=== PATIENT | male | born 1960 ===

== ENCOUNTER 2021-03-07 10:30 | Inpatient (IN) | payer OTHER ==
[~2021-03-07] VITALS: Ht 162.6 cm; Wt 78.5 kg
[2021-03-07] MEDS ORDERED: LASIX20 MG PO (13:49)
[2021-03-07] MEDS ORDERED: SIMVASTATIN80 MG PO (13:49)
[2021-03-07] MEDS ORDERED: CHILDREN'S ASPI81 MG PO (13:49)
[2021-03-07] MEDS ORDERED: NIFEDIPINE ER60 MG PO (13:49)
[2021-03-07] MEDS ORDERED: ACID REDUCER20 M1 PO (13:49)
[2021-03-07] MEDS ORDERED: COZAAR25 MG PO (13:50)
[2021-03-07] MEDS ORDERED: [UNRECOGNIZED DRUG - MIXTURE] PO (13:52)
[2021-03-07] MEDS ORDERED: NEURONTIN800 MG PO (13:53)
[2021-03-07] MEDS ORDERED: RESTORIL30 M1 PO (13:53)
[2021-03-07] MEDS ORDERED: SERTRALINE HCL100 MG PO (13:53)
[2021-03-13] MEDS ORDERED: DIAZEPAM5 MG PO (11:24)
[2021-03-13] MEDS ORDERED: MEDROLPACK PO (11:24)
[2021-03-13] MEDS ORDERED: COLACE100 MG PO (11:24)
[2021-03-13] MEDS ORDERED: PERCOCET 5-3251 EACH PO (11:24)
== END 2021-03-14 14:42 | disposition home or self-care (01) | DRG 473 ==
LOC: O/R 03-13 04:45 → SURH 03-13 04:45
PROVIDERS: ADMIT Orthopaedic Surgery Orthopaedic Surgery of the Spine; ATTEND Orthopaedic Surgery Orthopaedic Surgery of the Spine
PROC: XRG20F3 Fusion of 2 or more Cervical Vertebral Joints using Radiolucent Porous Interbody Fusion Device, Open Approach, New Technology Group 3 (ICD-10-PCS; 2021-03-13)
PROC: 07DS3ZZ Extraction of Vertebral Bone Marrow, Percutaneous Approach (ICD-10-PCS; 2021-03-13)
PROC: 0RT30ZZ Resection of Cervical Vertebral Disc, Open Approach (ICD-10-PCS; principal; 2021-03-13 13:15)
DX: M50.021 Cervical disc disorder at C4-C5 level with myelopathy (principal); M48.02 Spinal stenosis, cervical region; I10 Essential (primary) hypertension